=== PATIENT | male | born 1975 | race Caucasian/White ===

== ENCOUNTER 2024-05-01 12:15 | Emergency (ER) | payer OTHER, SELFPAY ==
--- NOTE | ~2024-05-01 | XR_ITS ---
EXAMINATION: XR CHEST CLINICAL INFORMATION: Cough COMPARISON: None available. TECHNIQUE: 2 views of the chest were obtained. FINDINGS: The lungs are adequately expanded. Patchy and hazy opacities within the left lung base and retrocardiac region. Mild streaky right basilar opacities. No pleural effusions or pneumothorax. The cardiomediastinal silhouette is within normal limits. No acute osseous abnormality. XR/XR chest 2V IMPRESSION: Patchy and hazy opacities within the left lung base and retrocardiac region, concerning for infectious/inflammatory etiology. Mild streaky right basilar opacities which may related to atelectasis or may represent infiltrate.
[2024-05-01 12:24] VITALS: BP 122/65; PULSE 73; RESP 16; TEMP 36.8; O2SAT 96; BMI 40.3
--- NOTE | 2024-05-01 12:24 | ED_ITS ---
HPI - General Adult General Chief complaint: Upper Respiratory Symptoms Stated complaint: Flu symptoms Time Seen by Provider: 05/01/24 12:30 Source: patient and RN notes reviewed Mode of arrival: ambulatory Limitations: no limitations History of Present Illness ED Provider: Keily Gentile PA-C HPI narrative: This is a 48-year-old male, asplenic, who presents emergency department with complaints of flu-like symptoms x1 week. Patient reports that over this last week he has felt chills, sweats, nausea, body aches, and headaches. He states that he has been taking Aleve and NyQuil without any relief. He denies any sick contacts. He denies any chest pain or shortness of breath. He does report a slight cough. He is a nonsmoker. He went to [facility] yesterday however left without being seen due to the long wait time. He does state that he spends a lot of time outdoors. No other complaints or concerns at this time. MD complaint: Flu-like symptoms Related Data Previous Rx's ?Medication ?Instructions ?Recorded amoxicillin 875 mg-potassium 1 tab PO BID 7 days #14 tabs 05/01/24 clavulanate 125 mg tablet doxycycline hyclate 100 mg capsule 100 mg PO BID 7 days #14 caps 05/01/24 morphine 15 mg immediate release 15 mg PO Q6H PRN pain #7 tabs 05/01/24 tablet morphine 15 mg immediate release 15 mg PO Q6H PRN severe pain 05/01/24 tablet (scale score 7-10) #7 tabs Allergies Allergy/AdvReac Type Severity Reaction Status Date / Time No Known Allergies Allergy Verified 05/01/24 12:28 Review of Systems 2 Review of Systems: Yes all other systems are reviewed and are negative Constitutional: Constitutional: Reports as per HPI [facility] Social History Social History Smoked in Last 30 Days: No Use of substances other than those prescribed or required for medical reasons: No Advance Directives: No Advance Directives Information Provided: No Physical Exam ED Vital Signs: Vital Signs - 24 hr 05/01/24 12:24 Temperature 98.3 F Pulse Rate 73 Respiratory Rate 16 Blood Pressure 122/65 Pulse Oximetry 96 Oxygen Delivery Method Room Air BMI result Body Mass Index 40.3 Const General: cooperative, comfortable and no acute distress Orientation/consciousness: patient oriented x3 Limitations: no limitations HENMT Head: Yes normal to inspection, Yes normocephalic and Yes atraumatic Ears: hearing grossly normal bilaterally General nose exam: Normal external nose present Face and sinus: Yes normal facial exam Mouth: Normal oral and palatal mucosa present, oropharynx normal and moist mucous membranes Throat: Yes posterior oropharynx normal Eyes General: appearance normal, both eyes and all related structures Eyelids: Yes eyelids normal Conjunctivae: conjunctivae normal Sclerae: sclerae normal Pupils: Equal, round and reactive pupils present EOM: EOMs intact bilaterally Neck Neck: Yes normal visual inspection, Yes full ROM and Yes no lymphadenopathy Lymphatic: no lymphadenopathy noted Chest Chest palpation & inspection: normal inspection of the chest Resp Other: Inspiratory and expiratory crackles heard at the lung base Effort & Inspection: normal respiratory effort and able to speak in complete sentences Cardio Rate: regular rate Rhythm: regular rhythm Heart sounds: S1 normal heart sound present and S2 normal heart sound present GI Inspection: Yes normal to inspection Skin General skin exam: no rashes or lesions noted Trauma: no lacerations or abrasions Wounds: no wounds Neuro General: patient oriented x3 and moves all extremities Cranial nerves: Yes Equal, round and reactive pupils present Extrem Other: No peripheral edema noted General: Yes normal to inspection Right upper extremity: normal to inspection Left upper extremity: normal to inspection Right lower extremity: normal to inspection Left lower extremity: normal to inspection Course Course Course Narrative: This is an RME done by HERNAN Mcdonald: Additional HPI, ROS, PE not included below will be deferred to primary provider. 48 year old M with hereditary spherocytosis and history of splenectomy at age 4 presenting with flu-like symptoms since last Monday with chills, diaphoresis, dizziness, headaches, bilateral hand parasthesias, nausea. Denies cough, vomiting, syncope, cp. Does not follow with a pcp. No sick contacts, recent travel. Has taken tylenol, aleve, dayquil with no relief. States had covid test yesterday which was negative. Appearance: Alert.? Oriented X3.? No acute cardiopulmonary distress distress.? Head: Normocephalic, atraumatic, no step-offs or deformities Neck: Normal inspection.? Neck supple.? CVS: Pulses normal.? Respiratory: No respiratory distress. Skin: ? Normal skin color. Extremities: 5/5 strength to bilateral upper and lower extremities Neuro: Oriented X 3.? No motor deficit.? No sensory deficit. Reevaluation(s) Reevaluation #1: Patient has leukocytosis at 16.6k, with left shift, slight hyponatremia at 131. CK 191, BNP 36, troponin 4.1. EKG normal sinus rhythm. Chest x-ray revealing patchy and hazy opacities within the left lung base and retrocardiac region concerning for infectious/inflammatory etiology. Mild streaky right basilar opacities which may be related to atelectasis or may represent infiltrate discussed findings with patient, given return precautions. Pt placed on double abx coverage d/t aspenia. Pt stable for d/c. Time: 15:48 Medications Administered Discontinued Medications Generic Name Dose Route Start Last Admin Trade Name Freq PRN Reason Stop Dose Admin Acetaminophen 975 mg 05/01/24 13:13 05/01/24 13:32 Acetaminophen 325 Mg Tablet PO 05/01/24 13:14 975 mg ONCE ONE Administration Amoxicillin/Clavulanate Potassium 875 mg 05/01/24 16:05 05/01/24 16:18 Amoxicillin/Potassium Clav 875 Mg Tablet PO 05/01/24 16:06 875 mg ONCE ONE Administration Doxycycline Monohydrate 100 mg 05/01/24 16:05 05/01/24 16:18 Doxycycline Monohydrate 100 Mg Capsule PO 05/01/24 16:06 100 mg ONCE ONE Administration Sodium Chloride 1,000 mls @ 999 mls/hr 05/01/24 13:13 05/01/24 15:56 Ns IV 05/01/24 14:13 Infused .Q1H1M ONE Infusion Morphine Sulfate 4 mg 05/01/24 16:05 05/01/24 16:18 Morphine Sulfate 4 Mg/Ml Cartridge IVPUSH 05/01/24 16:06 4 mg ONCE ONE Administration Protocol Medical Decision Making Medical Decision Making MDM Narrative: This is a 49-year-old male, a splenic, who presents emergency department with ?flu-like symptoms? x1 week. He endorses chills, sweats, nausea, body aches, headaches. He endorses a slight cough. No chest pain or shortness of breath. On arrival, vital signs within normal limits, he is afebrile speaking full sentences, under no acute distress. Lungs with faint inspiratory and expiratory crackles heard at the left lung base concerning for pneumonia. Differential diagnoses also include pneumonia, URI, COVID, viral syndrome, less likely mass, malignancy. Plan: Labs, EKG, chest x-ray, viral swabs Differential Diagnosis Differential Diagnoses: The differential diagnosis associated with the presentation includes See above Admission/Observation Consideration of admission/observation: Escalation of care including admission/observation considered Lab Data MDM Lab Attestation statement: I reviewed the patient's lab results. 05/01/24 13:28 05/01/24 13:28 Labs: Lab Results 05/01/24 05/01/24 05/01/24 Range/Units 13:28 13:48 14:30 WBC 16.6 H (4.8-10.8) X10*3/uL RBC 5.20 (4.60-5.80) X10*6/uL Hgb 14.9 (14.0-18.0) g/dl Hct 44.4 (42.0-52.0) % MCV 85.4 (80.0-98.0) fL MCH 28.7 (27.0-33.0) pg MCHC 33.6 (31.0-36.0) g/dl RDW 15.3 (11.0-16.0) % Plt Count 492 H (160-400) X10*3/uL MPV 9.1 L (9.4-12.4) fL Immature Gran % (Auto) 0.7 H (0.0-0.4) % Neut % (Auto) 74.4 H (45-73) % Lymph % (Auto) 17.1 L (20-40) % [place] % (Auto) 7.1 (2-11) % Eos % (Auto) 0.2 (0-4) % Baso % (Auto) 0.5 (0-2) % Lymph # (Auto) 2.8 (1.2-4.9) X10*3/uL [place] # (Auto) 1.2 (0.1-1.2) X10*3/uL Eos # (Auto) 0.0 (0.0-0.4) X10*3/uL Baso # (Auto) 0.1 (0.0-0.2) X10*3/uL Abs Immat Gran (auto) 0.11 H (0.00-0.03) X10*3/uL Absolute Neuts (auto) 12.3 H (2.0-8.3) x10*3/uL Absolute Nucleated RBC 0.000 (0.0-0.012) X10*3/uL Nucleated RBC % (auto) 0.0 (0.0-0.2) /100WBC PT 15.0 H (11.1-13.3) SEC INR 1.2 H (0.9-1.1) Sodium 131 L (135-145) mmol/L Potassium 3.7 (3.3-5.1) mmol/L Chloride 96 (96-108) mmol/L Carbon Dioxide 25 (22-29) mmol/L Anion Gap 14 (12-20) BUN 18 H (9-16) mg/dL Creatinine 1.06 (0.5-1.4) mg/dL Estim Creat Clear Calc 112.9 Estimated GFR > 60 Random Glucose 117 H (60-115) mg/dL Lactic Acid 1.0 (0.5-2.0) mmol/L Calcium 9.1 (8.4-10.2) mg/dL Magnesium 2.3 (1.6-2.6) mg/dL Total Bilirubin 0.8 (0.0-1.0) mg/dL AST 35 (5-37) U/L ALT 23 (0-40) U/L Alkaline Phosphatase 101 (39-117) U/L Total Creatine Kinase 191 H (38-174) U/L Troponin I High Sens 4.1 (<3.5-35.0) ng/L B-Natriuretic Peptide 36 (<100) pg/mL Total Protein 8.1 H (6.5-8.0) g/dL Albumin 3.8 (3.5-5.0) g/dL Urine Color Dark Yellow Urine Appearance Cloudy Urine pH 6.0 (5.0-9.0) Ur Specific [place] >= 1.030 H (1.005-1.025) Urine Protein 300 (3+) H (Neg-Trace) mg/dL Urine Glucose (UA) Negative (Negative) mg/dL Urine Ketones 15 (Negative) mg/dL Urine Blood Large (3+) H (Negative) Urine Nitrite Negative (Negative) Ur Leukocyte Esterase Trace H (Negative) Urine RBC >20 H (0-2) /HPF Urine WBC 0-5 (0-5) /HPF Ur Squamous Epith Cells 3-5 (0-2) /HPF Urine Bacteria None Seen (None Seen) Hyaline Casts 3-5 (0-2) /LPF Granular Casts Present Lyme Screen IgG & IgM <0.90 index Lyme Progressive Test TNP COVID-19 (JU) Negative (Negative) COVID-19 Clin Com See Note Influenza Type A (FRED) Negative (Negative) Influenza Type B (FRED) Negative (Negative) Influenza A & B Note See Note Radiology Impression Discussion of test interpretation with radiology: I have reviewed the radiologist's reading. External Record Review External record reviewed: Inpatient record, Office record, Outpatient record, Prior outpatient labs, Prior outpatient radiology, Primary care record and Outside ED record Discharge Plan Discharge Clinical Impression: Pneumonia Patient Disposition: Home, Self-Care Instructions: Community Acquired Pneumonia (ED) Additional Instructions: You were seen in the emergency department today and found to have a pneumonia. Please take prescribed antibiotics as directed. Finish the entire course even if you are feeling better. You tested negative for COVID and flu today. Drink plenty of fluids get plenty of rest. You may take morphine as directed, only take for severe pain only. Please be advised that this can cause drowsiness, do not drink alcohol or drive while taking this medication. Alternate between ibuprofen and Tylenol as needed for pain. Follow-up with your primary care physician. If any new or worsening symptoms occur including but not limited to chest pain, shortness of breath, please return for re-evaluation. Prescriptions: New amoxicillin-pot clavulanate 875-125 mg tablet 1 tab PO BID 7 Days Qty: 14 0RF doxycycline hyclate 100 mg capsule 100 mg PO BID 7 Days Qty: 14 0RF morphine 15 mg tablet 15 mg PO Q6H PRN (Reason: severe pain (scale score 7-10)) Qty: 7 0RF Rx Instructions: Partial Fill upon patient request. morphine 15 mg tablet 15 mg PO Q6H PRN (Reason: pain) Qty: 7 0RF Rx Instructions: Partial Fill upon patient request. Stand Alone Forms: Work/School Release Interventions: ED Discharge Assessment Last Done: 05/01/24 16:33 Discharge Date/Time: 05/01/24 16:45 Print Language: Sinhala
--- NOTE | 2024-05-01 13:12 | ECG_ITS ---
Test Reason : SOB Blood Pressure : / mmHG Vent. Rate : 068 BPM Atrial Rate : 068 BPM P-R Int : 174 ms QRS Dur : 102 ms QT Int : 398 ms P-R-T Axes : 040 025 034 degrees QTc Int : 423 ms Normal sinus rhythm Normal ECG No previous ECGs available Referred By: Keily Gentile Electronically Signed By:DAVID DSOUZA
[2024-05-01] MEDS: Acetaminophen 325 MG TABLET 975 MG PO (13:32)
[2024-05-01] MEDS: 0.9 % Sodium Chloride 1,000 ML 999 ML IV (13:32)
[2024-05-01 13:35] LABS: MANUAL DIFF FLAG NO
[2024-05-01 13:50] LABS: Basophils Absolute Auto 0.1 X10*3/uL (0.0-0.2); Basophils Percent Auto 0.5 % (0-2); Eosinophils Percent Auto 0.2 % (0-4); Hematocrit 44.4 % (42.0-52.0); Hemoglobin 14.9 g/dl (14.0-18.0); Imm Gran Abs Auto 0.11 X10*3/uL (0.00-0.03); Imm Gran Pct Auto 0.7 % (0.0-0.4); Lymphocytes Absolute Auto 2.8 X10*3/uL (1.2-4.9); Lymphocytes Percent Auto 17.1 % (20-40); Magnesium 2.3 mg/dL (1.6-2.6); Mean Corpuscular HGB Conc 33.6 g/dl (31.0-36.0); Mean Corpuscular Hemoglobin 28.7 pg (27.0-33.0); Mean Corpuscular Volume 85.4 fL (80.0-98.0); Mean Platelet Volume 9.1 fL (9.4-12.4); Monocytes Absolute Auto 1.2 X10*3/uL (0.1-1.2); Monocytes Percent Auto 7.1 % (2-11); Neutrophils Absolute Auto 12.3 x10*3/uL (2.0-8.3); Neutrophils Percent Auto 74.4 % (45-73); Platelet Count 492 X10*3/uL (160-400); Red Cell Distribution Width 15.3 % (11.0-16.0); White Blood Count 16.6 X10*3/uL (4.8-10.8)
[2024-05-01 13:51] LABS: Alanine Aminotransferase 23 U/L (0-40); Albumin Level 3.8 g/dL (3.5-5.0); Alkaline Phosphatase 101 U/L (39-117); Anion Gap 14 (12-20); Aspartate Amino Transferase 35 U/L (5-37); Bilirubin Total 0.8 mg/dL (0.0-1.0); Blood Urea Nitrogen 18 mg/dL (9-16); Calcium 9.1 mg/dL (8.4-10.2); Carbon Dioxide 25 mmol/L (22-29); Chloride 96 mmol/L (96-108); Creatinine Clr Calc Pharmacy 112.9; Estimated Glomerular Filt Rate > 60; Glucose Random 117 mg/dL (60-115); Potassium 3.7 mmol/L (3.3-5.1); Sodium 131 mmol/L (135-145); Total Protein 8.1 g/dL (6.5-8.0)
[2024-05-01 13:53] LABS: INTERNATIONAL NORM RATIO 1.2 (0.9-1.1)
[2024-05-01 13:54] LABS: IDNOW Serial# 6674DD1D; Influenza A Negative (Negative); Influenza B2 Negative (Negative)
[2024-05-01 13:55] LABS: COVID-19 Test Negative (Negative); IDNOW Serial# 58CA691E
--- NOTE | 2024-05-01 13:55 | PC.NURSE ---
patient arrives via external triage complaining of flu like symptoms for the last few days, patient is complaining of body aches and pains, fevers and chills for the last week, was seen in [place] ER yesterday, tested negative for covid or flu, was discharged home with viral illness, was advised to come in by his primary care doctor for further testing. patient denies chest pain or shortness of breath, endorsing back pain that he states is chronic but is being exacerbated by his illness. Pt states he has not noticed any new rashes, states he feels run down and has been unable to tolerate much activity due to fatigue. patient alert and oriented x4, denies nausea at this time, 18g PIV placed in RAC, blood work drawn and sent to lab. patient medicated per NOV. awaiting further results at this time
[2024-05-01 13:56] LABS: B Type Natriuretic Peptide 36 pg/mL (<100)
[2024-05-01 13:57] LABS: Appearance Urine Cloudy; Color Urine Dark Yellow; Glucose Urine UA Negative (Negative); Leukocyte Esterase Urine Trace (Negative); Nitrite Urine Negative (Negative); Specific Gravity - Urine >= 1.030 (1.005-1.025); UMIC TRIGGER UACC YES; Urine Blood Large (3+) (Negative); Urine Ketones 15 mg/dL (Negative); Urine Protein 300 (3+) mg/dL (Neg-Trace)
[2024-05-01 13:57] LABS: Troponin-I High Sensitivity 4.1 ng/L (<3.5-35.0)
[2024-05-01 14:05] LABS: Bacteria Urine None Seen (None Seen); Granular Casts Urine Present; RBC Urine >20 /HPF (0-2); WBC Urine 0-5 /HPF (0-5)
[2024-05-01 16:00] VITALS: BP 122/57; PULSE 64; O2SAT 97
[2024-05-01] MEDS: Doxycycline Monohydrate 100 MG CAPSULE PO (16:18)
[2024-05-01] MEDS: Amoxicillin/Potassium Clav 875 MG TABLET PO (16:18)
[2024-05-01] MEDS: Morphine Sulfate 4 MG/ML CARTRIDGE IVPUSH (16:18)
[2024-05-01 16:31] VITALS: O2SAT 97
[2024-05-01 16:33] VITALS: BP 122/57; PULSE 72; RESP 18; TEMP 36.5; O2SAT 97
[2024-05-02 12:48] LABS: Lyme Abs Screen <0.90 index
[2024-05-07 05:33] LABS: Babesia IgG <1:64 titer (<1:64); Babesia IgM <1:20 titer (<1:20)
[2024-05-07 11:29] LABS: A. Phagocytophilum Ab IgG <1:64 (<1:64); A. Phagocytophilum Ab IgM <1:20 (<1:20); E. Chaffeensis Ab IgG <1:64 (<1:64); E. Chaffeensis Ab IgM <1:20 (<1:20)
== END 2024-05-01 16:45 | disposition home or self-care (01) ==
PROVIDERS: Physician Assistant; Physician Assistant Medical; Emergency Provider Emergency Medicine
DX: J18.9 Pneumonia, unspecified organism (principal); R11.2 Nausea with vomiting, unspecified; M79.10 Myalgia, unspecified site; R06.02 Shortness of breath; R51.9 Headache, unspecified; Z11.52 Encounter for screening for COVID-19; Z79.899 Other long term (current) drug therapy
CPT/HCPCS: 36415; 71046; 80053; 81001; 82550; 83605; 83735; 83880; 84484; 85025; 85610; 86617; 86618; 86666; 86753; 87040; 87502; 87635; 93005; 96361; 96374; 99284; 99285; J2270

== ENCOUNTER → 2024-05-01 13:12 | Outpatient (BNV) | payer OTHER, SELFPAY | PROVIDERS: Emergency Provider Emergency Medicine; Visit Provider Internal Medicine | DX: R06.02 Shortness of breath (principal) | CPT/HCPCS: 93010 ==